=== PATIENT | female | born 1975 | race American Indian/Alaskan Native ===

== ENCOUNTER 2023-08-10 00:01 | Emergency (ER) | payer BC ==
[~2023-08-10] VITALS: Ht 160 cm; Wt 74.8 kg
[2023-08-10 00:18] VITALS: BP_SYST 160; PULSE 88; RESP 13; TEMP 97.4; O2SAT 98
[2023-08-10] MEDS: amLODIPine BESYLATE 10 MG TABLET PO ONE (00:40)
[2023-08-10] MEDS: LORazepam 1 MG TABLET PO ONE (00:41)
[2023-08-10] MEDS ORDERED: NOR10 PO (01:10)
[2023-08-10] MEDS ORDERED: VIS25 PO (01:10)
[2023-08-10] MEDS ORDERED: KETOROLAC TROMETHAMINE 60 MG/2 ML VIAL IM ONE (01:15)
[2023-08-10 01:23] VITALS: BP_SYST 125; PULSE 81; RESP 18; TEMP 97.4; O2SAT 98
== END 2023-08-10 01:23 | disposition home or self-care (01) ==
LOC: SED 00:01
DX: F41.9 Anxiety disorder, unspecified (principal); I10 Essential (primary) hypertension; R07.89 Other chest pain; R06.02 Shortness of breath; Z79.899 Other long term (current) drug therapy; Z79.2 Long term (current) use of antibiotics
CPT/HCPCS: 71045; 93005; 99283